=== PATIENT | male | born 1960 | race Two or more races ===

== ENCOUNTER 2017-03-01 16:36 | Emergency (ER) | payer OTHER ==
[2017-03-01 18:46] VITALS: BP 151/92
--- NOTE | 2017-03-01 18:53 | ED ---
Laceration/Wound HPI - HPI Summary HPI Summary: Patient tried to jump up on a cement wall and missed. He struck his right collazo on the edge of the wall and suffered a cut to the collazo. Bleeding was controlled with pressure. His tetanus is up to date. He was ambulatory at the scene without pain with weight bearing. No N/T. - History of Current Complaint Stated Complaint: RT LEG INJURY Time Seen by Provider: 03/01/17 17:41 Hx Obtained From: Patient Mechanism of Injury: Sharp/Blunt Trauma Onset/Duration: Sudden Onset Aggravating: Movement Alleviating: Nothing Timing: Constant Onset Severity: Moderate Current Severity: Moderate Pain Intensity: 5 Associated Signs & Symptoms: Pain - Allergy/Home Medications Allergies/Adverse Reactions: Allergies Allergy/AdvReac Type Severity Reaction Status Date / Time No Known Allergies Allergy Verified 08/23/12 19:56 PMH/Surg Hx/FS Hx/Imm Hx Previously Healthy: Yes - Surgical History Surgery Procedure, Year, and Place: LEFT ACL SURGERY Infectious Disease History: No Infectious Disease History: Denies: Traveled Outside the in Last 30 Days - Family History Known Family History: Positive: None - Social History Occupation: Employed Full-time Lives: With Family Alcohol Use: None Substance Use Type: Reports: None Smoking Status (MU): Never Smoked Tobacco Review of Systems Positive: Bruising, Other - 2 cm skin avulsion to right mid collazo Negative: Weakness, Paresthesia, Numbness All Other Systems Reviewed And Are Negative: Yes Physical Exam Triage Information Reviewed: Yes Vital Signs On Initial Exam: Initial Vitals Temp Pulse Resp BP Pulse Ox 98.2 F 62 20 139/71 99 03/01/17 16:42 03/01/17 16:42 03/01/17 16:42 03/01/17 16:42 03/01/17 16:42 Vital Signs Reviewed: Yes Appearance: Positive: Well-Appearing, No Pain Distress, Well-Nourished Skin: Positive: Warm, Skin Color Reflects Adequate Perfusion, Dry, Tender - 2 cm skin avulsion to right mid collazo, Soft Head/Face: Positive: Normal Head/Face Inspection Eyes: Positive: EOMI, RAHAT, Conjunctiva Clear ENT: Positive: Hearing grossly normal Respiratory/Lung Sounds: Positive: Breath Sounds Present Cardiovascular: Positive: RRR Musculoskeletal: Positive: Strength/ROM Intact Neurological: Positive: Sensory/Motor Intact, Alert, Oriented to Person Place, Time, NV Bundle Intact Distally, Normal Gait Psychiatric: Positive: Affect/Mood Appropriate AVPU Assessment: Alert Diagnostics - Vital Signs Vital Signs Temp Pulse Resp BP Pulse Ox 03/01/17 16:43 98.2 F 61 20 139/71 100 03/01/17 16:42 98.2 F 62 20 139/71 99 - Laboratory Lab Statement: Any lab studies that have been ordered have been reviewed, and results considered in the medical decision making process. Laceration Repair Course/Dx - Differential Dx Differental Diagnoses: Abrasion, Avulsion, Cellulitis, Dehiscence, Hematoma, Laceration, Puncture Wound - Clinical Impression Provider Diagnoses: Avulsion of skin of right lower leg Discharge - Discharge Plan Condition: Stable Disposition: HOME Patient Education Materials: Skin Avulsion (ED) Forms: *Work Release Referrals: No Primary Care Phys,NOPCP [Primary Care Provider] - Additional Instructions: Please keep your wound clean and covered with a bandage and triple anti-biotic ointment for the next 2-3 days. You can shower and pat dry afterwards. The wound can remain open to air unless you are concerned about it becoming dirty or hurt. Elevate your leg above your heart and use ibuprofen 600mg three times daily with meals for the next 3-5 days to decrease swelling and pain. Follow-up with your primary care provider if your symptoms do not improve in 7-10 days. Return to the emergency department if symptoms worsen.
== END 2017-03-01 18:45 | disposition home or self-care (01) ==
LOC: ED 16:36
DX: S81.801A Unspecified open wound, right lower leg, initial encounter (principal); S80.11XA Contusion of right lower leg, initial encounter; W22.01XA Walked into wall, initial encounter; Y93.9 Activity, unspecified; Y92.9 Unspecified place or not applicable
CPT/HCPCS: 99282

== ENCOUNTER 2018-05-23 09:53 | Day surgery (SDC) | payer OTHER ==
[~2018-05-23 09:53] MED LIST: Buffered Lidocaine 0.9% SYRIN* 5 ML/SYR SYRINGE INTRADERM ONE
[2018-05-23] MEDS ORDERED: ceFAZolin 2 GM PREMIX (*) 2 GM/50 ML BAG IVPB ONE (10:13)
[2018-05-23] MEDS ORDERED: Famotidine IV* 10 MG/ML 2 ML (20 mg) ONE (10:14)
[2018-05-23] MEDS ORDERED: Dexamethasone IV* 4 MG/ML 1 ML (4 MG) ONE (10:14)
[2018-05-23] MEDS: Dexamethasone IV* 4 MG/ML 1 ML (4 MG) IV SLOW PU ONE ×2 (10:28→10:30)
[2018-05-23] MEDS: Famotidine IV* 10 MG/ML 2 ML (20 mg) IV ONE ×2 (10:29→10:30)
[2018-05-23] MEDS ORDERED: Lidocain 1% EPI 1:100,000 * 30 ML MDV ONE (10:51)
[2018-05-23] MEDS ORDERED: Bupivacaine 0.5% PF 10 ML VIAL INJ ONE (10:51)
[2018-05-23] MEDS ORDERED: fentaNYL* 50 MCG/ML 2 ML VIAL (100 MCG VIAL) ONE (11:09)
[2018-05-23] MEDS ORDERED: methylPREDNISolone ACETATE 80* 80 MG/ML 1 ML VIAL ONE (11:10)
[2018-05-23] MEDS ORDERED: Propofol* 10 MG/ML 20 ML BTL IV PUSH ONE (11:12)
[2018-05-23] MEDS ORDERED: Ketorolac INJ* 30 MG/ML 1 ML VIAL ONE (11:12)
[2018-05-23] MEDS ORDERED: Ondansetron INJ* 2 MG/ML VIAL ONE (11:12)
[2018-05-23] MEDS ORDERED: Naloxone* 0.4 MG/ML 1 ML VIAL IV PRN (12:44)
[2018-05-23] MEDS ORDERED: fentaNYL* 50 MCG/ML 2 ML VIAL (100 MCG VIAL) IV PRN (12:44)
[2018-05-23] MEDS ORDERED: DiMENhydriNATE IV* 50 MG/ML VIAL IV PUSH PRN (12:44)
[2018-05-23 13:24] VITALS: BP 145/68
--- NOTE | 2018-05-23 22:50 | OP ---
CC: PCP, Vasquez Smith MD * DATE OF OPERATION: 05/23/18 [facility] DATE OF : 62 SURGEON: Regis Faulkner MD MAP COMPILER: None. ANESTHESIOLOGIST: Dr. Burnham. ANESTHESIA: General. PRE-OP DIAGNOSES: Left knee grade 3 anterior cruciate ligament rupture with medial meniscus tear and unstable flap. POST-OP DIAGNOSES: Left knee grade 3 anterior cruciate ligament rupture with medial meniscus tear and unstable flap and lateral meniscal fraying. OPERATIVE PROCEDURES: 1. Left knee arthroscopy with debridement of the ACL and ACL stump. 2. Partial medial meniscectomy. 3. Partial lateral meniscectomy. COMPLICATIONS: None. ESTIMATED BLOOD LOSS: Minimal. TOURNIQUET TIME: 0 minutes. INDICATIONS: Anam Guzman is a 57-year-old male who injured his knee approximately 2 months ago when he was playing soccer. He tried to treat this conservatively. He had persistent pain and catching and block to motion. Risks and benefits of surgery were discussed at length including but not limited to bleeding infection, damage to nerves, vessels, surrounding structures, wound nonhealing, persistent pain, need for further surgery, scarring, stiffness, incomplete relief of symptoms and risks of anesthesia, risk of DVT, he has elected to proceed. DESCRIPTION OF PROCEDURE: The patient was greeted in the preoperative area by the attending surgeon. Correct extremity was marked and consent was confirmed. The patient was brought back to the operating suite, where he was placed in supine position on the operating table. He then underwent general anesthesia and then an unsterile tourniquet was placed high on the proximal leg. A lateral post was positioned. The left leg was prepped and draped in sterile fashion, beginning with chlorhexidine soap, scrub, and alcohol wipe, and a final prep of ChloraPrep. After appropriate surgical pause indicating site, side, procedure, and administration of antibiotics, the knee was intra-articularly injected with 1% lidocaine with epi. The lateral port was then made sharply with an 11 blade. The scope was introduced into the joint and joint was examined. There was synovitis present. The patellofemoral joint had grade 0 to 1 changes. Medial and lateral gutters were intact, but there was abundant synovitis that was debrided back. The ACL was completely torn with an unstable flap anteriorly, this was debrided back, so there was no longer a block to motion. After which the medial compartment was examined, the medial meniscus had evidence of tearing with an unstable flap including the root posteriorly, this was viewed the best through Anna portal. This was debrided back with miranda and biters until a stable layer. Once the flap was removed, attention was directed laterally. The lateral meniscus had some mild fraying at the root, but mostly fraying about the body, which was debrided back. There was evidence from a previous tear that had already healed back. Grade 0 to 1 changes at the medial and femoral compartments. The knee was placed in 90 degrees and the ACL was examined, again it was completely torn up the femoral insertion. The patellofemoral joint was examined and there were grade 0 to 1 changes. The synovitis anteriorly medially and laterally were also debrided back and the gutters were examined and found to have no loose body. The knee was sterilely lavaged and removed any loose debris or fluid. The wounds were copiously irrigated with sterile saline. The portals were closed with 3-0 nylon interrupted fashion. The portals were then injected with 0.25% Marcaine plain as well as the intraarticular joint. He was awoken from anesthesia and transferred to the PACU in stable condition. POSTOPERATIVE PLAN: He will be weightbearing with crutches for the first 3 to 5 days. He will be discharged on pain medication. DVT prophylaxis was considered but deferred due to no previous personal or family history. I will see the patient back in 10 to 14 days. [id number]/[facility] #: [id number] JUAN
== END 2018-05-23 13:11 | disposition home or self-care (01) ==
LOC: OREAST 09:53
PROVIDERS: ATTEND Orthopaedic Surgery
DX: S83.242A Other tear of medial meniscus, current injury, left knee, initial encounter (principal); S83.282A Other tear of lateral meniscus, current injury, left knee, initial encounter; S83.512A Sprain of anterior cruciate ligament of left knee, initial encounter; X50.0XXA Overexertion from strenuous movement or load, initial encounter; Y93.66 Activity, soccer; Y92.322 Soccer field as the place of occurrence of the external cause
CPT/HCPCS: 88304; J0690; J1040; J1100; J1885; J2405; J2704; J3010